=== PATIENT | male | born 1975 | race African-American/Black ===

== ENCOUNTER 2018-06-28 16:14 | Emergency (ER) | payer SELFPAY ==
[2018-06-28 16:35] VITALS: Ht 175.3 cm
[2018-06-28 17:41] VITALS: BP 125/84
== END 2018-06-28 17:41 | disposition home or self-care (01) ==
LOC: ED 16:14
DX: M25.511 Pain in right shoulder (principal); M54.9 Dorsalgia, unspecified; F17.210 Nicotine dependence, cigarettes, uncomplicated; R56.9 Unspecified convulsions
CPT/HCPCS: J1885

== ENCOUNTER 2019-10-20 22:38 | Emergency (ER) | payer SELFPAY ==
[~2019-10-20] VITALS: Ht 175.3 cm; Wt 73.5 kg
[2019-10-20 22:43] VITALS: Ht 175.3 cm; Wt 73.5 kg
[2019-10-20 23:52] LABS: BASOPHIL % 0.5 % (0-2); PLATELET COUNT 183 x10^3mcL (130-400); RED CELL DISTRIBUTION WIDTH 12.5 % (11.5-14.5)
[2019-10-21 00:01] LABS: UA SPECIFIC GRAVITY >=1.030 (1.005-1.035); microscopic required? YES; urine erythrocyte TRACE (NEGATIVE)
[2019-10-21 00:05] LABS: CALCIUM 9.3 mg/dL (8.5-10.1); CARBON DIOXIDE 33.9 mmol/L (21-32); CHLORIDE SERUM 95 mmol/L (98-107); CREATININE SERUM 1.1 mg/dL (0.7-1.3); GFR1 > 60 mL/min; GLUCOSE SERUM 87 mg/dL (74-106); POTASSIUM SERUM 4.1 mmol/L (3.5-5.1); SODIUM SERUM 132 mmol/L (136-145)
[2019-10-21 00:06] LABS: ALBUMIN 3.6 g/dL (3.4-5.0); ALKALINE PHOSPHATASE 51 U/L (46-116); ALT/SGPT 36 U/L (16-63); AST/SGOT 30 U/L (15-37); BILIRUBIN TOTAL 0.4 mg/dL (0.20-1.00); LIPASE 102 IU/L (73-393); TOTAL PROTEIN, SERUM 7.4 g/dL (6.4-8.2)
[2019-10-21 01:15] VITALS: BP 121/76
== END 2019-10-21 01:15 | disposition home or self-care (01) ==
LOC: ED 22:38
PROVIDERS: Emergency Medicine
DX: R10.31 Right lower quadrant pain (principal); R19.7 Diarrhea, unspecified
CPT/HCPCS: 36415